=== PATIENT | female | born 1960 | race Caucasian/White ===

== ENCOUNTER → 2018-03-04 09:38 | Outpatient (CLI) | payer BC, SELFPAY ==
[2018-03-04 13:18] LABS: ALT 72 U/L (12-78); AST 40 U/L (15-37); Albumin 3.8 g/dL (3.4-5.0); Alkaline Phosphatase 61 U/L (46-116); Anion Gap 7.2 mmol/L (3-11); BUN 17 mg/dL (7-18); Bilirubin, Total 0.4 mg/dL (0.2-1.0); CO2 27.8 mmol/L (21.0-32.0); CREATININE 0.88 mg/dL (0.55-1.02); Calcium 9.5 mg/dL (8.5-10.1); Chloride 108 mmol/L (98-107); Cholesterol 124 mg/dL (50-200); Glucose 90 mg/dL (70-100); HDL Cholesterol 52 mg/dL (40-60); LDL CHOLESTEROL 62 mg/dL (<100); Potassium 5.2 mmol/L (3.5-5.1); Sodium 143 mmol/L (136-145); TSH (W/Ref FT4) 2.51 uIU/mL (0.358-3.74); Total Protein 7.3 g/dL (6.4-8.2); Triglyceride 31 mg/dL (30-150)
== END ==
DX: R03.0 Elevated blood-pressure reading, without diagnosis of hypertension (principal); K21.9 Gastro-esophageal reflux disease without esophagitis; F32.9 Major depressive disorder, single episode, unspecified; M79.7 Fibromyalgia; R63.8 Other symptoms and signs concerning food and fluid intake; Z13.220 Encounter for screening for lipoid disorders
CPT/HCPCS: 36415; 80053; 80061; 83721; 84443

== ENCOUNTER 2018-10-01 09:50 | Outpatient (CLI) | payer BC, SELFPAY ==
[2018-10-01 11:44] LABS: ALT 78 U/L (12-78); AST 37 U/L (15-37); Alkaline Phosphatase 94 U/L (46-116); BUN 17 mg/dL (7-18); Bilirubin, Total 0.4 mg/dL (0.2-1.0); CREATININE 0.82 mg/dL (0.55-1.02); Calcium 9.8 mg/dL (8.5-10.1); Chloride 105 mmol/L (98-107); Glucose 97 mg/dL (70-100); Potassium 4.7 mmol/L (3.5-5.1); Sodium 144 mmol/L (136-145); TSH (W/Ref FT4) 13.97 uIU/mL (0.358-3.74); Total Protein 7.8 g/dL (6.4-8.2)
[2018-10-01 12:02] LABS: FREE T4 0.93 ng/dL (0.76-1.46)
== END 2018-10-01 10:10 ==
DX: E03.9 Hypothyroidism, unspecified (principal); R63.8 Other symptoms and signs concerning food and fluid intake; G47.00 Insomnia, unspecified; F41.9 Anxiety disorder, unspecified; F32.9 Major depressive disorder, single episode, unspecified; M79.7 Fibromyalgia; R03.0 Elevated blood-pressure reading, without diagnosis of hypertension
CPT/HCPCS: 36415; 80053; 84439; 84443

== ENCOUNTER 2018-11-09 09:40 | Outpatient (CLI) | payer BC, SELFPAY ==
[2018-11-09 11:57] LABS: FREE T4 1.04 ng/dL (0.76-1.46)
== END 2018-11-09 10:00 ==
DX: E03.9 Hypothyroidism, unspecified (principal); G47.00 Insomnia, unspecified
CPT/HCPCS: 36415; 84439; 84443

== ENCOUNTER 2018-12-15 11:30 | Outpatient (CLI) | payer BC, SELFPAY ==
[2018-12-15 12:58] LABS: TSH (W/Ref FT4) 9.42 uIU/mL (0.358-3.74)
== END 2018-12-15 11:50 ==
DX: E03.9 Hypothyroidism, unspecified (principal)
CPT/HCPCS: 36415; 84439; 84443

== ENCOUNTER 2019-02-15 09:01 | Outpatient (CLI) | payer BC, SELFPAY ==
[2019-02-15 10:37] LABS: TSH (W/Ref FT4) 0.99 uIU/mL (0.36-3.74)
== END 2019-02-15 09:21 ==
DX: E03.9 Hypothyroidism, unspecified (principal); G47.00 Insomnia, unspecified
CPT/HCPCS: 36415; 84443

== ENCOUNTER 2019-04-15 08:46 | Outpatient (CLI) | payer BC, SELFPAY ==
[2019-04-15 10:21] LABS: TSH (W/Ref FT4) 0.91 uIU/mL (0.36-3.74)
== END 2019-04-15 09:06 ==
DX: E03.9 Hypothyroidism, unspecified (principal); G47.00 Insomnia, unspecified
CPT/HCPCS: 36415; 84443

== ENCOUNTER 2019-04-22 11:40 | Outpatient (CLI) | payer BC, SELFPAY ==
[2019-04-22 15:09] LABS: ALT 97 U/L (14-59); AST 42 U/L (15-37); Alkaline Phosphatase 86 U/L (46-116); Anion Gap 9.7 mmol/L (3-11); BUN 18 mg/dL (7-18); Bilirubin, Total 0.4 mg/dL (0.2-1.0); CO2 26.3 mmol/L (21.0-32.0); CREATININE 0.83 mg/dL (0.55-1.02); Chloride 107 mmol/L (98-107); Glucose 92 mg/dL (70-100); Potassium 4.8 mmol/L (3.5-5.1); Sodium 143 mmol/L (136-145); Total Protein 8.1 g/dL (6.4-8.2)
== END 2019-04-22 12:00 ==
DX: E03.9 Hypothyroidism, unspecified (principal); R03.0 Elevated blood-pressure reading, without diagnosis of hypertension; R63.8 Other symptoms and signs concerning food and fluid intake; Z00.00 Encounter for general adult medical examination without abnormal findings
CPT/HCPCS: 80053

== ENCOUNTER 2019-06-07 07:29 | Outpatient (CLI) | payer BC, SELFPAY ==
--- NOTE | 2019-06-07 07:30 | DI.MAMMO_ITS ---
EXAM: MG MAMMO SCREENING CLINICAL HISTORY: screening,Z12.39,SCREENING TECHNIQUE: Bilateral full field digital CC and MLO mammographic images were obtained with 3D tomosyn thesis and utilizing computer aided detection (CAD). COMPARISON: Available for comparison. FINDINGS: Masses/Architectural Distortion: None seen. Microcalcifications: No suspicious pleomorphic-type are seen. Skin Thickening/Nipple Retraction: None. IMPRESSION: 1. No significant interval change with no specific features of malignancy noted. 2. Unless there is more urgent need, screening mammography is recommended, as per [employer] guidelines. ACR BI-RAD Category- 1 Negative Breast Density - Category B - Scattered areas of fibroglandular density A negative radiographic report should not delay biopsy if a dominant or clinically suspicious mass is present. Up to ten percent of cancers are not identified on mammography. A negative report may reinforce clinical impression. Adenosis and dense breasts may obscure an underlying neoplasm. False positive reports average 6 to 10%. Patient will receive a letter notifying them of these results.
== END 2019-06-07 07:49 ==
DX: Z12.31 Encounter for screening mammogram for malignant neoplasm of breast (principal)
CPT/HCPCS: 77063; 77067

== ENCOUNTER 2019-10-26 10:35 | Outpatient (CLI) | payer BC, SELFPAY ==
[2019-10-29 09:24] LABS: SARS-CoV-2 RNA Undetected (Undetected); SARS-CoV-2 Specimen Source Nasal
== END 2019-10-26 10:55 ==
DX: Z20.828 Contact with and (suspected) exposure to other viral communicable diseases (principal)
CPT/HCPCS: U0003

== ENCOUNTER 2020-04-27 04:18 | Outpatient (REF) | payer BC, SELFPAY ==
[2020-04-27 16:15] LABS: ALT 70 U/L (14-59); AST 33 U/L (15-37); Albumin 3.6 g/dL (3.4-5.0); Alkaline Phosphatase 72 U/L (46-116); Anion Gap 7.4 mmol/L (3-11); BUN 13 mg/dL (7-18); Bilirubin, Total 0.4 mg/dL (0.2-1.0); CO2 27.6 mmol/L (21.0-32.0); CREATININE 0.84 mg/dL (0.55-1.02); Chloride 108 mmol/L (98-107); Glucose 109 mg/dL (74-106); Sodium 143 mmol/L (136-145); TSH (W/Ref FT4) 1.09 uIU/mL (0.36-3.74); Total Protein 7.1 g/dL (6.4-8.2)
== END 2020-04-27 04:38 ==
LOC: LBN 04:18
DX: Z00.00 Encounter for general adult medical examination without abnormal findings (principal); E03.9 Hypothyroidism, unspecified; G47.00 Insomnia, unspecified
CPT/HCPCS: 80053; 84443

== ENCOUNTER 2020-06-02 17:56 | Outpatient (REF) | payer BC, SELFPAY ==
[2020-06-07 13:53] LABS: Patient Race White; SARS-CoV-2 RNA Undetected (Undetected); SARS-CoV-2 Specimen Source Nasopharynx
== END 2020-06-02 18:16 ==
LOC: LBN 17:56
PROVIDERS: Visit Provider Nurse Practitioner Adult Health
DX: R50.9 Fever, unspecified (principal); R19.7 Diarrhea, unspecified; M79.10 Myalgia, unspecified site; R51.9 Headache, unspecified
CPT/HCPCS: 87449; U0003

== ENCOUNTER 2021-05-01 08:44 | Outpatient (CLI) | payer BC, SELFPAY ==
[2021-05-01 12:40] LABS: ALT 64 U/L (14-59); AST 37 U/L (15-37); Albumin 3.7 g/dL (3.4-5.0); Alkaline Phosphatase 60 U/L (46-116); Anion Gap 7.3 mmol/L (3-11); BUN 13 mg/dL (7-18); Bilirubin, Total 0.5 mg/dL (0.2-1.0); CO2 31.7 mmol/L (21.0-32.0); CREATININE 0.8 mg/dL (0.55-1.02); Calcium 9.9 mg/dL (8.5-10.1); Chloride 105 mmol/L (98-107); Glucose 117 mg/dL (74-106); Potassium 3.7 mmol/L (3.5-5.1); Sodium 144 mmol/L (136-145); TSH (W/Ref FT4) 0.87 uIU/mL (0.36-3.74); Total Protein 7.7 g/dL (6.4-8.2)
== END 2021-05-01 08:45 | disposition home or self-care (01) ==
LOC: LOS 08:44
DX: Z00.00 Encounter for general adult medical examination without abnormal findings (principal); I10 Essential (primary) hypertension; E03.9 Hypothyroidism, unspecified; G47.00 Insomnia, unspecified
CPT/HCPCS: 36415; 80053; 84443

== ENCOUNTER 2021-06-18 | Outpatient (REF) | payer BC, SELFPAY ==
[2021-06-20 15:08] LABS: COVID-19 RT-PCR UVMMC Result Negative (Negative)
== END 2021-06-19 10:09 | disposition home or self-care (01) ==
LOC: LBN
PROVIDERS: Visit Provider Nurse Practitioner Family
DX: Z20.822 Contact with and (suspected) exposure to COVID-19 (principal)
CPT/HCPCS: U0003

== ENCOUNTER 2021-08-06 17:58 | Outpatient (REF) | payer BC, SELFPAY ==
[2021-08-08 15:46] LABS: COVID-19 RT-PCR UVMMC Result Negative (Negative)
== END 2021-08-06 17:59 | disposition home or self-care (01) ==
LOC: LBN 17:58
DX: Z20.822 Contact with and (suspected) exposure to COVID-19 (principal)
CPT/HCPCS: U0003

== ENCOUNTER 2021-10-22 17:44 | Outpatient (REF) | payer BC, SELFPAY ==
[2021-10-24 12:03] LABS: COVID-19 RT-PCR UVMMC Result Negative (Negative)
== END 2021-10-22 17:45 | disposition home or self-care (01) ==
LOC: LBN 17:44
PROVIDERS: Visit Provider Physician Assistant
DX: Z20.822 Contact with and (suspected) exposure to COVID-19 (principal)
CPT/HCPCS: U0003

== ENCOUNTER 2021-11-21 21:13 | Outpatient (REF) | payer BC, SELFPAY ==
[2021-11-23 11:39] LABS: COVID-19 RT-PCR UVMMC Result Negative (Negative)
== END 2021-11-21 21:14 | disposition home or self-care (01) ==
LOC: LBN 21:13
PROVIDERS: Visit Provider Physician Assistant
DX: Z20.822 Contact with and (suspected) exposure to COVID-19 (principal); J34.89 Other specified disorders of nose and nasal sinuses; R51.9 Headache, unspecified; R50.9 Fever, unspecified; R53.83 Other fatigue
CPT/HCPCS: U0003

== ENCOUNTER 2022-03-19 03:29 | Outpatient (CLI) | payer BC, SELFPAY ==
[2022-03-19 13:55] LABS: ALT 68 U/L (14-59); AST 39 U/L (15-37); Albumin 3.7 g/dL (3.4-5.0); Alkaline Phosphatase 61 U/L (46-116); Anion Gap 6.9 mmol/L (3-11); BUN 11 mg/dL (7-18); Bilirubin, Total 0.5 mg/dL (0.2-1.0); CO2 31.1 mmol/L (21.0-32.0); CREATININE 0.8 mg/dL (0.55-1.02); Calcium 9.6 mg/dL (8.5-10.1); Chloride 102 mmol/L (98-107); FREE T4 1.71 ng/dL (0.76-1.46); Glucose 120 mg/dL (74-106); Potassium 3.7 mmol/L (3.5-5.1); Sodium 140 mmol/L (136-145); TSH 0.05 uIU/mL (0.36-3.74); Total Protein 8.1 g/dL (6.4-8.2)
== END 2022-03-19 03:30 | disposition home or self-care (01) ==
LOC: LBO 03:29
PROVIDERS: Visit Provider Nurse Practitioner Family
DX: E03.9 Hypothyroidism, unspecified (principal); E66.9 Obesity, unspecified
CPT/HCPCS: 36415; 80053; 84439; 84443

== ENCOUNTER 2022-05-29 04:03 | Outpatient (CLI) | payer BC, SELFPAY ==
[2022-05-29 17:02] LABS: FREE T4 1.25 ng/dL (0.76-1.46); TSH 0.46 uIU/mL (0.36-3.74)
== END 2022-05-29 04:04 | disposition home or self-care (01) ==
LOC: LBO 04:04
PROVIDERS: Visit Provider Nurse Practitioner Family
DX: E03.9 Hypothyroidism, unspecified (principal)
CPT/HCPCS: 36415; 84439; 84443

== ENCOUNTER 2023-09-03 10:14 | Outpatient (CLI) | payer BC, SELFPAY ==
[2023-09-03 10:51] LABS: ALT 99 U/L (14-59); AST 44 U/L (15-37); Albumin 3.7 g/dL (3.4-5.0); Alkaline Phosphatase 69 U/L (46-116); Anion Gap 10.8 mmol/L (3-11); BUN 10 mg/dL (7-18); Bilirubin, Total 0.5 mg/dL (0.2-1.0); CO2 27.2 mmol/L (21.0-32.0); CREATININE 0.9 mg/dL (0.55-1.02); Calcium 9.5 mg/dL (8.5-10.1); Chloride 104 mmol/L (98-107); Estimated GFR 72.28 (mL/min/1.73m2); Glucose 92 mg/dL (74-106); Sodium 142 mmol/L (136-145); TSH (W/Ref FT4) 10.88 uIU/mL (0.36-3.74); Total Protein 7.9 g/dL (6.4-8.2)
[2023-09-03 10:54] LABS: Potassium 2.7 mmol/L (3.5-5.1)
[2023-09-03 11:13] LABS: FREE T4 1.06 ng/dL (0.76-1.46)
[2023-09-03 13:49] LABS: Calculated LDL 99 mg/dL (<100); Cholesterol 179 mg/dL (<200); HDL Cholesterol 67 mg/dL (40-60); Triglyceride 67 mg/dL (<150)
[2023-09-03 19:30] LABS: HIV-1/2 Ag & Ab Screen Negative (Negative)
[2023-09-03 19:34] LABS: Hepatitis C Ab w Rflx HCV PCR Reactive (Negative)
[2023-09-04 11:50] LABS: HCV RNA Detection Quantitative 5740000 IU/mL (Undetected); HCV RNA Qualitative Detected (Undetected)
== END 2023-09-03 10:15 | disposition home or self-care (01) ==
LOC: LBO 10:14
PROVIDERS: PCP Nurse Practitioner Family; Visit Provider Nurse Practitioner Family
DX: Z11.59 Encounter for screening for other viral diseases (principal); Z11.4 Encounter for screening for human immunodeficiency virus [HIV]; Z13.220 Encounter for screening for lipoid disorders; E03.9 Hypothyroidism, unspecified
CPT/HCPCS: 36415; 80053; 80061; 86803; 87389; 87522; 84439; 84443

== ENCOUNTER 2023-09-03 14:00 | Outpatient (REF) | payer BC, SELFPAY ==
--- NOTE | 2023-09-03 13:20 | ORMUBX_PTH ---
PATIENT: Lena Blackwood LOC: [facility] U#:[id number] AGE/SX: 63/F ROOM: RE09/03/[address]: Isatu Coronado : 1960 BED: DIS: 09/03/2023 SPEC #: [id number] RECD: 09/03/23 18:19 STATUS: TATUM REQ #: [id number] BRENDA: 09/03/23 13:[address]: Isatu Coronado DEPT: Surgical Specimen RECD BY: Cayla Lovett ENTERED: 09/03/23 18:21 SP TYPE: ORMUBX OTHR DR: Sudhir Peter DNP Tissues: 1 - MUCOSA, NOS Procedures: GROSS AND MICRO LEVEL 4 SPECIAL STAIN 1 Comments: [id number]
== END 2023-09-03 14:01 | disposition home or self-care (01) ==
LOC: LBN 14:00
PROVIDERS: PCP Nurse Practitioner Family; Visit Provider Registered Nurse Maternal Newborn
DX: K13.79 Other lesions of oral mucosa (principal); K13.6 Irritative hyperplasia of oral mucosa
CPT/HCPCS: 88305; 88312

== ENCOUNTER 2023-09-05 14:39 | Outpatient (CLI) | payer BC, SELFPAY ==
[2023-09-05 14:27] LABS: Potassium 3.3 mmol/L (3.5-5.1)
== END 2023-09-05 14:40 | disposition home or self-care (01) ==
LOC: LBO 14:39
PROVIDERS: PCP Nurse Practitioner Family; Visit Provider Nurse Practitioner Family
DX: E87.6 Hypokalemia (principal)
CPT/HCPCS: 36415; 84132

== ENCOUNTER → 2023-11-20 11:40 | Outpatient (CLI) | payer BC, SELFPAY ==
--- NOTE | 2023-11-20 11:00 | DI.CT_ITS ---
Exam(s) CT ABDOMEN PELVIS W EXAM: CT ABDOMEN PELVIS W CLINICAL HISTORY: 2 weeks of pain, enlarged liver R10.11 RUQ PAIN B19.20 HEP C R19.7 DIARRHEA TECHNIQUE: Imaging Protocol: Axial computed tomography images with coronal and sagittal reformatted images were created and reviewed. CONTRAST MATERIAL: Intravenous: Omnipaque 350 Contrast volume:100 mL Oral: Yes COMPARISON: No exams were available for comparison FINDINGS: ABDOMEN: Lung Bases: Coronary artery calcifications and/or stents are present. Liver: There is decreased attenuation of the liver suggesting fatty infiltration. The liver measures 20 cm long. No measurable mass. Portal, Superior Mesenteric, and Splenic Veins: Unremarkable. Gallbladder and Biliary Tract: The gallbladder is not visualized. There is no biliary ductal dilatat ion. Pancreas: Normal density, no abnormal calcifications or inflammatory process. Spleen: Normal. Adrenals: No masses seen. Kidneys: Normal size, contour and axis. There is a 2 mm nonobstructing stone in the midpole of the ri ght kidney. No masses seen. Abdominal Aorta: Abdominal portion non-dilated. Atherosclerotic calcification is present. Bowel: No obstruction or bowel wall thickening. Appendix is unremarkable. Peritoneal Cavity: No ascites, collection or mesenteric inflammatory response. No free air. Lymph Nodes: Within normal limits. Bones: Within normal limits for the patient's age. Soft Tissues: There is a small fat containing umbilical hernia. PELVIS: Bladder: The urinary bladder is incompletely distended limiting evaluation. Reproductive Organs: Unremarkable as visualized. Lymph Nodes: Within normal limits. Bones: Within normal limits for the patient's age. IMPRESSION: 1. Hepatomegaly and hepatic steatosis. No evidence of a hepatic mass. 2. Nonobstructing right nephrolithiasis. 3. No biliary ductal dilatation. RADIATION DOSE DELIVERED: 1,562.89mGy.cm Total DLP DATA REPOSITORY: All CT scans at this facility are submitted to the National Radiology Data Registry (NRDR) Dose Index Registry (DIR) with the [employer] ([employer]). RADIATION OPTIMIZATION: All CT scans at this facility use at least one of these dose optimization te chniques: automated exposure control; mA and/or kV adjustment per patient size (includes targeted exa ms where dose is matched to clinical indication); or iterative reconstruction.
[2023-11-20 12:51] LABS: HCT 44.3 % (36.0-46.0); HGB 15.5 g/dL (11.2-15.7); MCV 95 fL (80-95); MPV 10.5 fL (8.0-11.0); Platelet Count 259 10^3/uL (130-400); RBC 4.69 10^6/uL (3.93-5.22); RDW 12.5 % (11.7-14.6); RDW-SD 43.2 fL; WBC 9.44 10^3/uL (4.4-10.8)
[2023-11-20 13:32] LABS: Absolute Lymphocyte Count 4.25 10^3/uL (1.2-3.4); Absolute Monocyte Count 0.76 10^3/uL (0.1-0.8); Absolute Neutrophil Count 4.44 10^3/uL (1.2-6.7); Atypical Lymphocytes % 3
[2023-11-20 13:33] LABS: Diff Comment Manual Differential; RBC Morphology Normal
[2023-11-20 13:45] LABS: ALT 139 U/L (14-59); AST 79 U/L (15-37); Albumin 3.7 g/dL (3.4-5.0); Alkaline Phosphatase 71 U/L (46-116); Amylase 79 U/L (25-115); Anion Gap 7.9 mmol/L (3-11); BUN 14 mg/dL (7-18); Bilirubin, Total 0.4 mg/dL (0.2-1.0); CO2 29.1 mmol/L (21.0-32.0); CREATININE 0.9 mg/dL (0.55-1.02); Calcium 10.2 mg/dL (8.5-10.1); Chloride 105 mmol/L (98-107); Estimated GFR 72.28 (mL/min/1.73m2); Glucose 107 mg/dL (74-106); Lipase 91 U/L (16-77); Potassium 4.4 mmol/L (3.5-5.1); Sodium 142 mmol/L (136-145); Total Protein 8.2 g/dL (6.4-8.2)
[2023-11-20] MEDS: Normal Saline - Diluent 50 ML VIAL IJ (14:49)
[2023-11-20] MEDS: Omnipaque 350 MG/ML 500 ML BTL-Imaging package IJ (14:49)
[2023-11-20] MEDS: Barium Sulfate 2% W/V-Berry Smoothie 450 ML BTL PO ×2 (14:53→14:55)
== END ==
PROVIDERS: PCP Nurse Practitioner Family; Visit Provider Nurse Practitioner Family
DX: B19.20 Unspecified viral hepatitis C without hepatic coma; R16.2 Hepatomegaly with splenomegaly, not elsewhere classified; K76.0 Fatty (change of) liver, not elsewhere classified
CPT/HCPCS: 80053; 83690; 74177; 82150; 85025

== ENCOUNTER 2023-11-20 15:16 | Outpatient (REF) | payer BC, SELFPAY ==
[2023-11-20 16:21] LABS: C Diff PCR Negative (Negative)
[2023-11-22 10:47] LABS: Campylobacter PCR Negative (Negative); Salmonella PCR Negative (Negative); Shiga Toxin PCR Negative (Negative); Shigella/Enteroinvasive Ecoli Negative (Negative)
[2023-11-24 21:13] LABS: Calprotectin <50.0 mcg/g
== END 2023-11-20 15:17 | disposition home or self-care (01) ==
LOC: LBN 15:16
PROVIDERS: PCP Nurse Practitioner Family; Visit Provider Nurse Practitioner Family
DX: R19.7 Diarrhea, unspecified (principal)
CPT/HCPCS: 87493; 87505; 83993

== ENCOUNTER 2023-12-11 14:56 | Outpatient (REF) | payer BC, SELFPAY ==
--- NOTE | 2023-12-11 14:30 | ORMUBX_PTH ---
PATIENT: Lena Blackwood LOC: [facility] U#:[id number] AGE/SX: 63/F ROOM: RE12/11/[address]: Isatu Coronado : 1960 BED: DIS: 12/11/2023 SPEC #: [id number] RECD: 12/12/23 11:43 STATUS: TATUM REQ #: [id number] BRENDA: 12/11/23 14:[address]: Isatu Coronado DEPT: Surgical Specimen RECD BY: Cayla Lovett ENTERED: 12/12/23 11:43 SP TYPE: ORMUBX OTHR DR: Sudhir Peter DNP Tissues: 1 - MUCOSA, NOS Procedures: GROSS AND MICRO LEVEL 4 Comments: [id number]
== END 2023-12-11 14:57 | disposition home or self-care (01) ==
LOC: LBN 14:56
PROVIDERS: PCP Nurse Practitioner Family; Visit Provider Registered Nurse Maternal Newborn
DX: L43.9 Lichen planus, unspecified
CPT/HCPCS: 88305

== ENCOUNTER → 2024-01-27 02:25 | Outpatient (CLI) | payer BC, SELFPAY ==
--- NOTE | 2024-01-27 13:39 | DI.RAD_ITS ---
Exam(s) XR KNEE RT 3V AP,LAT,JOHN EXAM: XR KNEE RT 3V AP,LAT,JOHN CLINICAL HISTORY: RT KNEE PAIN,swelling, atraumatic,M25.561. TECHNIQUE: 2D digital imaging was performed of the right knee. Three views obtained. AP, lateral an d PA tunnel views were obtained. COMPARISON: CR LEFT KNEE 3 VIEW COMPLETE from 05/06/2010 FINDINGS: BONES: No acute fracture is present. No bony destructive lesion is seen. There are enthesophytes at t he anterior patella. JOINTS: Small spurs are seen at the posterior patella. The joint spaces are otherwise well maintaine d. There is a small joint effusion. SOFT TISSUE: Normal. IMPRESSION: Minimal degenerative changes at the patellofemoral joint. Small joint effusion. DATA REPOSITORY: RADIATION DOSE DELIVERED:
== END ==
PROVIDERS: PCP Nurse Practitioner Family; Visit Provider Nurse Practitioner Family
DX: M25.561 Pain in right knee (principal); M25.40 Effusion, unspecified joint
CPT/HCPCS: 73562

== ENCOUNTER 2024-06-08 13:52 | Outpatient (CLI) | payer BC, SELFPAY ==
[2024-06-08 14:10] LABS: ALT 38 U/L (14-59); AST 20 U/L (15-37); Albumin 3.7 g/dL (3.4-5.0); Alkaline Phosphatase 56 U/L (46-116); Anion Gap 8.2 mmol/L (3-11); BUN 14 mg/dL (7-18); Bilirubin, Total 0.44 mg/dL (0.2-1.0); CO2 30.8 mmol/L (21.0-32.0); Calcium 9.6 mg/dL (8.5-10.1); Chloride 104 mmol/L (98-107); Glucose 99 mg/dL (74-106); Potassium 3.1 mmol/L (3.5-5.1); Sodium 143 mmol/L (136-145)
[2024-06-08 15:42] LABS: Lab Add On Test DONE
[2024-06-08 17:13] LABS: TSH (W/Ref FT4) 35.72 uIU/mL (0.36-3.74)
[2024-06-08 17:36] LABS: FREE T4 0.52 ng/dL (0.76-1.46)
[2024-06-09 13:37] LABS: HCV RNA Qualitative Undetected (Undetected)
== END 2024-06-08 13:53 | disposition home or self-care (01) ==
LOC: LBO 13:53
PROVIDERS: PCP Nurse Practitioner Family; Visit Provider Nurse Practitioner Family
DX: I10 Essential (primary) hypertension (principal); E87.6 Hypokalemia; B19.20 Unspecified viral hepatitis C without hepatic coma; E03.9 Hypothyroidism, unspecified
CPT/HCPCS: 36415; 80053; 87522; 84439; 84443

== ENCOUNTER 2024-08-24 14:02 | Outpatient (CLI) | payer BC, SELFPAY ==
[2024-08-24 16:43] LABS: TSH (W/Ref FT4) 15.01 uIU/mL (0.36-3.74)
[2024-08-24 17:19] LABS: FREE T4 0.63 ng/dL (0.76-1.46)
== END 2024-08-24 14:03 | disposition home or self-care (01) ==
LOC: LBO 14:03
PROVIDERS: PCP Nurse Practitioner Family; Visit Provider Nurse Practitioner Family
DX: E03.9 Hypothyroidism, unspecified (principal)
CPT/HCPCS: 36415; 84439; 84443

== ENCOUNTER 2024-11-12 00:52 | Outpatient (CLI) | payer BC, SELFPAY ==
[2024-11-12 13:20] LABS: TSH (W/Ref FT4) 0.57 uIU/mL (0.36-3.74)
== END 2024-11-12 00:53 | disposition home or self-care (01) ==
LOC: LOS 00:52
PROVIDERS: PCP Nurse Practitioner Family; Visit Provider Nurse Practitioner Family
DX: E03.9 Hypothyroidism, unspecified (principal)
CPT/HCPCS: 36415; 84443

== ENCOUNTER 2025-01-05 05:04 | Outpatient (CLI) | payer BC, SELFPAY ==
[2025-01-05 16:46] LABS: Potassium 3.8 mmol/L (3.5-5.1)
== END 2025-01-05 05:05 | disposition home or self-care (01) ==
LOC: LBO 05:05
PROVIDERS: PCP Nurse Practitioner Family; Visit Provider Nurse Practitioner Family
DX: E87.6 Hypokalemia (principal)
CPT/HCPCS: 36415; 84132

== ENCOUNTER 2025-05-12 09:54 | Outpatient (CLI) | payer BC, SELFPAY ==
[2025-05-12 15:34] LABS: Anion Gap 10.6 mmol/L (3-11); BUN 14 mg/dL (7-18); CO2 29.4 mmol/L (21.0-32.0); Calcium 10.4 mg/dL (8.5-10.1); Chloride 99 mmol/L (98-107); Estimated GFR 71.39 (mL/min/1.73m2); Glucose 88 mg/dL (74-106); Potassium 3.3 mmol/L (3.5-5.1); Sodium 139 mmol/L (136-145)
== END 2025-05-12 09:55 | disposition home or self-care (01) ==
LOC: LBO 09:55
PROVIDERS: PCP Nurse Practitioner Family; Visit Provider Nurse Practitioner Family
DX: I10 Essential (primary) hypertension (principal)
CPT/HCPCS: 36415; 80048

== ENCOUNTER 2025-06-27 21:12 | Outpatient (REF) | payer BC, SELFPAY ==
[2025-06-27 22:18] LABS: Anion Gap 10.4 mmol/L (3-11); BUN 14 mg/dL (9-23); CO2 28.6 mmol/L (20.0-31.0); Calcium 10.6 mg/dL (8.3-10.6); Chloride 103 mmol/L (98-107); Glucose 85 mg/dL (74-106); Potassium 3.8 mmol/L (3.5-5.1); Sodium 142 mmol/L (136-145)
== END 2025-06-27 21:13 | disposition home or self-care (01) ==
LOC: LBN 21:12
PROVIDERS: PCP Nurse Practitioner Family; Visit Provider Nurse Practitioner Family
DX: I10 Essential (primary) hypertension (principal)
CPT/HCPCS: 80048